=== PATIENT | female | born 1965 | race Caucasian/White ===

== ENCOUNTER 2016-08-11 14:17 | Observation (INO) | payer MEDICAID ==
[~2016-08-11] VITALS: Ht 162.6 cm; Wt 96.2 kg
[2016-08-11] MEDS ORDERED: MORPHINE 4 MG/ML SYR ONE (15:16)
[2016-08-11] MEDS ORDERED: SODIUM CHLORIDE 0.9% 1,000 ML ONE (15:16)
[2016-08-11] MEDS ORDERED: ONDANSETRON 4 MG VIAL ONE (15:16)
[2016-08-11] MEDS ORDERED: LIDOCAINE 2% TOPICAL ONE (15:35)
[2016-08-11] MEDS ORDERED: Ibuprofen 600 MG TAB PO PRN (16:15)
[2016-08-11] MEDS ORDERED: BISACODYL EC 5 MG TAB PO PRN (16:15)
[2016-08-11] MEDS ORDERED: ALU/MAG/SIM 30 ML UDC PO PRN (16:15)
[2016-08-11] MEDS ORDERED: PROMETHAZINE 25 MG/ML VIAL IV PRN (16:15)
[2016-08-11] MEDS ORDERED: MAG HYDROX 30 ML UDC PO PRN (16:15)
[2016-08-11] MEDS ORDERED: BISACODYL 10 MG SUPP RECTAL PRN (16:15)
[2016-08-11] MEDS ORDERED: SALINE FLUSH 10 ML FLUSH PRN (16:15)
[2016-08-11 17:51] VITALS: BP_SYST 99; RESP 18; TEMP 97.8
[2016-08-11] MEDS: LEVOTHYROXINE 0.075 MG TAB PO SCH (18:00)
[2016-08-11 18:12] VITALS: Ht 162.6 cm; Wt 96.2 kg
[2016-08-11] MEDS: ONDANSETRON 4 MG VIAL IV PRN (18:15)
[2016-08-11 19:26] VITALS: BP_SYST 113; RESP 16; TEMP 97.9
[2016-08-11] MEDS ORDERED: SALINE FLUSH 10 ML FLUSH SCH (20:00)
[2016-08-11] MEDS ORDERED: Atorvastatin 20 MG TAB PO SCH (21:00)
[2016-08-11] MEDS: LIDOCAINE 2% VISC 15 ML UDC SWISH.SPIT SCH (21:34)
[2016-08-11 22:58] VITALS: BP_SYST 119; RESP 16; TEMP 98.2
[2016-08-12] MEDS: ONDANSETRON 4 MG VIAL IV PRN (01:20)
[2016-08-12] MEDS: LIDOCAINE 2% VISC 15 ML UDC SWISH.SPIT SCH ×2 (02:03→08:41)
[2016-08-12 04:08] VITALS: BP_SYST 111; RESP 16; TEMP 97.7
[2016-08-12] MEDS ORDERED: SODIUM CHLORIDE 0.9% FLUSH BAG 500 ML IV SCH (06:00)
[2016-08-12] MEDS ORDERED: MISSING DOSE XX ONE (06:10)
[2016-08-12] MEDS: LEVOTHYROXINE 0.075 MG TAB PO SCH (06:29)
[2016-08-12 07:09] VITALS: BP_SYST 114; RESP 16; TEMP 97.7
[2016-08-12 09:27] VITALS: BP_SYST 114; RESP 16; TEMP 97.7
== END 2016-08-12 08:28 | disposition home or self-care (01) ==
LOC: ER 14:17 → EMR 16:14 → 5THW 17:47
PROVIDERS: ADMIT Otolaryngology; ATTEND Otolaryngology
CPT/HCPCS: 36415; 80053; 85025; 85610; 85730; 96361; 96374; 96375